=== PATIENT | male | born 1970 | race Caucasian/White ===

== ENCOUNTER 2016-12-15 10:49 | Day surgery (SDC) | payer BC ==
[~2016-12-15] VITALS: Ht 165.1 cm; Wt 62.1 kg
[~2016-12-15 10:49] MED LIST: DAILY VALUE1 EACH PO; OMEGA-31000 M1 PO
[2016-12-15 11:49] VITALS: BP 114/79
[2016-12-15] MEDS ORDERED: PERCOCET 5/31 TABLET PO (14:24)
[2016-12-15 15:05] VITALS: BP 125/80
[2016-12-15 16:07] VITALS: BP 128/77
== END 2016-12-15 16:40 | disposition home or self-care (01) ==
LOC: SDC 10:49
PROC: 0YU50JZ Supplement Right Inguinal Region with Synthetic Substitute, Open Approach (ICD-10-PCS; principal; 2016-12-15)
DX: K40.90 Unilateral inguinal hernia, without obstruction or gangrene, not specified as recurrent (principal); D69.6 Thrombocytopenia, unspecified; Z82.69 Family history of other diseases of the musculoskeletal system and connective tissue; Z80.8 Family history of malignant neoplasm of other organs or systems; Z80.42 Family history of malignant neoplasm of prostate
CPT/HCPCS: C1781; J0690; J1885; J2405; J3010